=== PATIENT | female | born 1975 | race Caucasian/White ===

== ENCOUNTER 2019-04-05 20:33 | Emergency (ER) | payer BC, OTHER ==
[2019-04-05 21:28] LABS: #Basophils 0.1 thou/uL (0.0-0.2); #Eosinphils 0.3 thou/uL (0.0-0.7); #Lymphocytes 3.5 thou/uL (1.20-3.40); #Monocytes 0.7 thou/uL (0.11-0.59); #Neutrophils 8.4 thou/uL (1.40-6.50); %Basophils 0.6 % (0.0-1.0); %Eosinophils 2.6 % (0.0-10.0); %Monocytes 5.1 % (0.0-10.0); %Neutrophils 64.8 % (42.0-75.0); Hemoglobin 13.1 g/dL (12.0-16.0); Mean Corpuscular HGB CONC 33.9 g/dL (32.0-36.0); Mean Corpuscular Hemoglobin 29.4 pg (27.0-31.0); Mean Corpuscular Volume 86.8 fL (78.0-98.0); Mean Platelet Volume 6.8 fL (7.4-10.4); Platelet Count 433 thou/uL (130-400); RBC Distribution Width 12.3 % (11.5-14.5); Red Blood Cell (RBC) Count 4.44 mill/uL (4.20-5.40); White Blood Cell (WBC) Count 12.9 thou/uL (4.8-10.8)
[2019-04-05 21:41] LABS: Pregnancy Test - Urine (BHCG) Negative (Negative); Pregu Control Background? CLEAR/WHITE (CLR/WHITE); Pregu Control Bar Appear? YES (CONTROL BAR)
[2019-04-05 21:43] LABS: Bacteria/HPF None Seen HPF (None Seen); Bilirubin Negative (Negative); Blood, Urine Moderate (Negative); Clarity Clear (Clear); Glucose, Urine (Dipstick) Negative (Negative); Hyaline Casts/LPF 0-3 HYALINE CAST LPF (0-3 Hyaline); Leukocyte Negative (Negative); Nitrite Negative (Negative); Pathc Cast-AUWi Flag 0.13 (0-2.49); Protein, Urine (Dipstick) Negative (Neg-Trace); Squamous Epithelial 0-3 HPF (0-3); Urobilinogen 0.2 mg/dL (0.2-1.0); WBC/HPF 0-3 HPF (0-3); pH, Urine 5.5 (5.0-9.0)
[2019-04-05 21:54] LABS: ALT (SGPT) 20 U/L (8-55); AST (SGOT) 15 U/L (5-34); Albumin 4.1 g/dL (3.5-5.0); Alkaline Phosphatase 138 U/L (40-150); Anion Gap 14 mmol/L (10-20); BUN (Urea Nitrogen) 17 mg/dL (7.0-18.7); Bilirubin, Total 0.7 mg/dL (0.2-1.2); Calc. Creatinine Clearance 0 mL/min (70-130); Calcium 10.2 mg/dL (7.8-10.44); Carbon Dioxide 26 mmol/L (22-29); Chloride 100 mmol/L (98-107); Estimated GFR-MDRD 78; Glucose 92 mg/dL (70-105); Lipase 34 U/L (8-78); Potassium 3.7 mmol/L (3.5-5.1); Protein, Total 8.1 g/dL (6.0-8.3); Sodium 136 mmol/L (136-145)
[2019-04-06] MEDS ORDERED: Ondansetron ODT 8 MG TAB ONE (01:30)
[2019-04-06] MEDS ORDERED: Ketorolac Tromethamine 60 MG/2 ML VIAL ONE (01:30)
--- NOTE | 2019-04-06 07:27 | ULT ---
PRELIMINARY REPORT/[facility]/EMERGENCY AFTER HOURS PROCEDURE: EXAM: US Pelvis Complete, Transabdominal EXAM DATE/TIME: 04/06/2019 12:34 AM CLINICAL HISTORY: 44 years old, female; Pain and signs and symptoms; Prior surgery; Surgery date: 6+ months; Surgery ty pe: Endometrial ablation x 6 yrs ago. Appendectomy yrs ago; Patient HX: Rlq pain x 7 days, n/v/d, vag inal bleeding; Additional info: No vaginal bleeding for yrs after endo ablation until past 2 days TECHNIQUE: Imaging protocol: Real-time transabdominal pelvic ultrasound with image documentation. Complete exam. COMPARISON: No relevant prior studies available. FINDINGS: Uterus/cervix: There are multiple nabothian cysts in the cervix. Endometrial stripe thickness is 3 mm . There is a hypoechoic likely intramural uterine fibroid bordering the endometrial stripe measuring a maximum of 2.4 cm. There is a small quantity of fluid in the endocervical canal. The uterus measure s 8.7 x 4.5 x 5.8 cm. Right adnexa: The right ovary measures 3.6 x 2.6 x 2.7 cm with normal Doppler flow. There is a right ovarian simple appearing cyst measuring a maximum of 2.0 cm. Left adnexa: The left ovary was not visualized. Free fluid: None. Bladder: Normal. IMPRESSION: 1. There is a hypoechoic likely intramural uterine fibroid bordering the endometrial stripe measuring a maximum of 2.4 cm. 2. There is a right ovarian simple appearing cyst measuring a maximum of 2.0 cm. Thank you for allowing us to participate in the care of your patient. Dictated and Authenticated by: Roberto Maza MD 04/06/2019 2:24 AM Central Time ([place] & [place]) FINAL REPORT EMERGENCY AFTER HOURS TRANSABDOMINAL AND TRANSVAGINAL PELVIC ULTRASOUND: Date: 04/06/19 [place] scale, color Doppler, and spectral Doppler images were obtained of the pelvis. IMPRESSION: I agree with the preliminary report provided by [facility]. POS: [facility]
== END 2019-04-06 02:49 | disposition home or self-care (01) ==
LOC: ERS 20:33
DX: N83.201 Unspecified ovarian cyst, right side (principal); E03.9 Hypothyroidism, unspecified; I10 Essential (primary) hypertension; F17.210 Nicotine dependence, cigarettes, uncomplicated; Z79.899 Other long term (current) drug therapy
CPT/HCPCS: 36415; 76856; 80053; 81003; 81015; 81025; 83690; 85025; 96372; J1885